=== PATIENT | male | born 1995 | race Caucasian/White ===

== ENCOUNTER 2017-06-16 22:05 | Inpatient (IN) | payer MEDICAID ==
[~2017-06-16] VITALS: Ht 181.6 cm; Wt 57.2 kg
[2017-06-17 01:36] VITALS: BP 132/81
[2017-06-17] MEDS ORDERED: CloNIDine HCL 0.1 MG TABLET PO PRN (07:45)
[2017-06-17] MEDS ORDERED: MAG HYDROX/AL HYDROX/SIMETH ES 30 ML SUSPENSION UDCUP PO PRN (07:45)
[2017-06-17] MEDS ORDERED: BENZOCAINE/MENTHOL LOZENGE MM PRN (07:45)
[2017-06-17] MEDS ORDERED: ONDANSETRON HCL 4 MG TABLET PO PRN (07:45)
[2017-06-17] MEDS ORDERED: ACETAMINOPHEN 325 MG TABLET PO PRN (07:45)
[2017-06-17] MEDS ORDERED: PETROLATUM,WHITE 71 GM JELLY TP PRN (07:45)
[2017-06-17] MEDS ORDERED: MAGNESIUM HYDROXIDE SUSPENSION 30 ML UDCUP PO PRN (07:45)
[2017-06-17] MEDS ORDERED: IBUPROFEN 600 MG TABLET PO PRN (07:45)
[2017-06-17] MEDS ORDERED: ALBUTEROL SULFATE HFA 90 MCG/PUFF 8 GM INHALER IH PRN (07:45)
[2017-06-17] MEDS ORDERED: LOPERAMIDE HCL 2 MG CAPSULE PO PRN (07:45)
[2017-06-17] MEDS ORDERED: BACITRACIN 28.4 GM OINTMENT TP PRN (07:45)
[2017-06-17 08:20] LABS: ALANINE AMINOTRANSFERASE 14 U/L (12-78); ANION GAP 7 mmol/L (8-16); ASPARTATE AMINOTRANSFERASE 15 U/L (15-37); BILIRUBIN,TOTAL 0.2 mg/dL (0.1-1.0); CALCIUM, TOTAL 8.5 mg/dL (8.8-10.5); CARBON DIOXIDE 28 mmol/L (22-29); CHLORIDE 106 mmol/L (98-107); CREATININE 0.76 mg/dL (0.60-1.30); GLOMERULAR FILTR. RATE CALC > 60 mL/min (>60); POTASSIUM 4.1 mmol/L (3.5-5.1); SODIUM SERUM 141 mmol/L (136-145); THYROID STIMULATING HORMONE 0.58 uIU/mL (0.36-3.74); TOTAL PROTEIN, SERUM 7.3 g/dL (6.4-8.2); UREA NITROGEN, BLOOD 13 mg/dL (7-18)
[2017-06-17 08:38] VITALS: BP 100/62
[2017-06-17] MEDS: LORazepam 1 MG TABLET PO PRN ×2 (08:53→16:45)
[2017-06-17] MEDS: MULTIVITAMINS WITH MINERALS, THERAPEUTIC TABLET PO SCH (08:53)
[2017-06-17] MEDS: ARIPiprazole 15 MG TABLET PO SCH (13:41)
[2017-06-17 16:31] VITALS: BP 115/65
[2017-06-17] MEDS: QUEtiapine FUMARATE 100 MG TABLET PO PRN (16:45)
[2017-06-18 06:38] VITALS: BP 112/68
[2017-06-18] MEDS: MULTIVITAMINS WITH MINERALS, THERAPEUTIC TABLET PO SCH (09:31)
[2017-06-18] MEDS: ARIPiprazole 15 MG TABLET PO SCH (09:31)
[2017-06-18 09:40] VITALS: BP 127/75
[2017-06-18 16:22] VITALS: BP 120/64
[2017-06-18] MEDS: LORazepam 1 MG TABLET PO PRN (16:36)
[2017-06-19 06:23] VITALS: BP 120/80
[2017-06-19 08:35] VITALS: BP 129/67
[2017-06-19] MEDS: MULTIVITAMINS WITH MINERALS, THERAPEUTIC TABLET PO SCH (09:10)
[2017-06-19] MEDS: ARIPiprazole 15 MG TABLET PO SCH (09:10)
[2017-06-19] MEDS: LORazepam 1 MG TABLET PO PRN ×2 (09:10→20:40)
[2017-06-19 16:11] VITALS: BP 123/72
[2017-06-19] MEDS: QUEtiapine FUMARATE 100 MG TABLET PO PRN (20:40)
[2017-06-20 06:13] VITALS: BP 110/62
[2017-06-20 08:46] VITALS: BP 128/65
[2017-06-20] MEDS: LORazepam 1 MG TABLET PO PRN ×2 (09:26→19:53)
[2017-06-20] MEDS: ARIPiprazole 15 MG TABLET PO SCH (09:26)
[2017-06-20] MEDS: MULTIVITAMINS WITH MINERALS, THERAPEUTIC TABLET PO SCH (09:27)
[2017-06-20 16:00] VITALS: BP 125/68
[2017-06-20] MEDS: QUEtiapine FUMARATE 100 MG TABLET PO PRN (19:53)
[2017-06-21 06:59] VITALS: BP 107/65
[2017-06-21 08:21] VITALS: BP 131/75
[2017-06-21] MEDS: ARIPiprazole 15 MG TABLET PO SCH (09:00)
[2017-06-21] MEDS: MULTIVITAMINS WITH MINERALS, THERAPEUTIC TABLET PO SCH (09:00)
[2017-06-21] MEDS: LORazepam 1 MG TABLET PO PRN ×3 (09:00→20:43)
[2017-06-21 16:34] VITALS: BP 110/71
[2017-06-21] MEDS: ZOLPIDEM TARTRATE 10 MG TABLET PO PRN (20:43)
[2017-06-22 06:45] VITALS: BP 115/74
[2017-06-22] MEDS: LORazepam 1 MG TABLET PO PRN ×3 (06:59→20:59)
[2017-06-22 08:40] VITALS: BP 109/64
[2017-06-22] MEDS: MULTIVITAMINS WITH MINERALS, THERAPEUTIC TABLET PO SCH (08:51)
[2017-06-22] MEDS: ARIPiprazole 15 MG TABLET PO SCH (08:51)
[2017-06-22 16:32] VITALS: BP 109/70
[2017-06-22] MEDS: ZOLPIDEM TARTRATE 10 MG TABLET PO PRN (20:20)
[2017-06-22] MEDS: QUEtiapine FUMARATE 100 MG TABLET PO PRN (22:27)
[2017-06-22 23:51] VITALS: BP 100/61
[2017-06-23 05:40] VITALS: BP 106/74
[2017-06-23] MEDS: LORazepam 1 MG TABLET PO PRN ×2 (05:41→16:42)
[2017-06-23 08:43] VITALS: BP 105/65
[2017-06-23] MEDS: MULTIVITAMINS WITH MINERALS, THERAPEUTIC TABLET PO SCH (09:06)
[2017-06-23] MEDS: ARIPiprazole 15 MG TABLET PO SCH (09:06)
[2017-06-23 16:13] VITALS: BP 127/84
[2017-06-23] MEDS: ZOLPIDEM TARTRATE 10 MG TABLET PO PRN (20:33)
[2017-06-24] MEDS: LORazepam 1 MG TABLET PO PRN ×2 (00:29→14:05)
[2017-06-24 01:06] VITALS: BP 128/96
[2017-06-24] MEDS: ARIPiprazole 15 MG TABLET PO SCH (09:52)
[2017-06-24] MEDS: MULTIVITAMINS WITH MINERALS, THERAPEUTIC TABLET PO SCH (09:52)
[2017-06-24 10:40] VITALS: BP 130/92
[2017-06-24] MEDS: QUEtiapine FUMARATE 100 MG TABLET PO PRN (17:00)
[2017-06-24 18:03] VITALS: BP 120/72
[2017-06-24] MEDS: ZOLPIDEM TARTRATE 10 MG TABLET PO PRN (20:26)
[2017-06-25 00:23] VITALS: BP 109/60
[2017-06-25] MEDS: MULTIVITAMINS WITH MINERALS, THERAPEUTIC TABLET PO SCH (09:17)
[2017-06-25] MEDS: ARIPiprazole 15 MG TABLET PO SCH (09:17)
[2017-06-25] MEDS: LORazepam 1 MG TABLET PO PRN ×2 (13:40→21:15)
[2017-06-25 16:10] VITALS: BP 119/72
[2017-06-25] MEDS: ZOLPIDEM TARTRATE 10 MG TABLET PO PRN (20:31)
[2017-06-25] MEDS: QUEtiapine FUMARATE 100 MG TABLET PO PRN (21:15)
[2017-06-26 06:31] VITALS: BP 100/68
[2017-06-26] MEDS: ARIPiprazole 15 MG TABLET PO SCH (09:02)
[2017-06-26] MEDS: MULTIVITAMINS WITH MINERALS, THERAPEUTIC TABLET PO SCH (09:02)
[2017-06-26 10:13] VITALS: BP 115/61
[2017-06-26] MEDS ORDERED: ARIPiprazole LAUROXIL ER SUSPENSION 882 MG/3.2 ML SYRINGE IM ONE (13:00)
[2017-06-26] MEDS ORDERED: ARIP15TA2 PO (13:18)
== END 2017-06-26 14:30 | disposition home or self-care (01) | DRG 750 ==
LOC: B3A 06-17 01:08 → B2S 06-21 15:11
PROVIDERS: ADMIT Psychiatry & Neurology Psychiatry; ATTEND Psychiatry & Neurology Child & Adolescent Psychiatry
DX: F20.0 Paranoid schizophrenia (principal); E46 Unspecified protein-calorie malnutrition; E87.6 Hypokalemia; F12.90 Cannabis use, unspecified, uncomplicated; F15.10 Other stimulant abuse, uncomplicated; K50.90 Crohn's disease, unspecified, without complications; G47.00 Insomnia, unspecified; R45.4 Irritability and anger; Z71.51 Drug abuse counseling and surveillance of drug abuser; Z68.1 Body mass index [BMI] 19.9 or less, adult
CPT/HCPCS: 84439; 84443; 99285